=== PATIENT | female | born 1955 | race African-American/Black ===

== ENCOUNTER 2017-08-28 19:53 | Emergency (ER) | payer OTHER ==
[2017-08-28 20:05] VITALS: BP 172/86; PULSE 88; TEMP 100; BMI 36.4
--- NOTE | 2017-08-28 20:09 | PDOC ---
History of Present Illness - General Chief Complaint: Cold Symptoms Stated Complaint: PAIN/ HEADACHE Time Seen by Provider: 08/28/17 20:08 History Source: Patient Exam Limitations: No Limitations - History of Present Illness Initial Comments: 08/28/17 23:26 62-year-old female with history of diabetes presents to the emergency department complaining of bitemporal headache and "behind my eyes" with noise and light sensitivity 3 days. Patient was also complaining of chills and nausea but denies fever, vomiting, dizziness, lightheadedness, visual disturbance, stiff neck, confusion, difficulty concentrating, difficulty waking , sleepiness, seizures, anorexia, skin rash. Patient states she was coughing for the past hour which was unproductive. She denies rhinorrhea, nasal congestion, facial pains. Patient states the headache is alleviated with Motrin and rest. 08/28/17 23:33 Timing/Duration: reports: other (x3d) Past History - Past Medical History Allergies/Adverse Reactions: Allergies Allergy/AdvReac Type Severity Reaction Status Date / Time No Known Allergies Allergy Verified 08/28/17 19:59 Home Medications: Ambulatory Orders Dulaglutide [Trulicity] 08/28/17 Insulin (Levemir) [Levemir Flexpen -] 28 units SQ DAILY 08/28/17 Acetaminophen W/ Codeine #3 [Tylenol # 3 -] 1 tab PO Q6H #15 tablet MDD 4 Anemia: Yes COPD: No Diabetes: Yes Hypercholesterolemia: Yes - Immunization History Td Vaccination: Yes Immunization Up to Date: Yes - Suicide/Smoking/Psychosocial Hx Smoking Status: Yes Smoking History: Current every day smoker Number of Cigarettes Smoked Daily: 6 Information on smoking cessation initiated: Yes 'Breaking Loose' booklet given: 08/28/17 Hx Alcohol Use: No Drug/Substance Use Hx: No Review of Systems - Review of Systems Able to Perform ROS?: Yes Comments:: 08/28/17 20:27 CONSTITUTIONAL: +chills Absent: fever, diaphoresis, generalized weakness, malaise, loss of appetite HEENT: Absent: rhinorrhea, nasal congestion, throat pain, throat swelling, difficulty swallowing, mouth swelling, ear pain, eye pain, visual Changes CARDIOVASCULAR: Absent: chest pain, loss of consciousness, palpitations, irregular heart rate, peripheral edema RESPIRATORY: +cough x1 hr Absent: shortness of breath, dyspnea with exertion, orthopnea, wheezing, stridor, hemoptysis GASTROINTESTINAL: Absent: abdominal pain, abdominal distension, nausea, vomiting, diarrhea, constipation, melena, hematochezia GENITOURINARY: Absent: dysuria, frequency, urgency, hesitancy, hematuria, flank pain, genital pain MUSCULOSKELETAL: Absent: myalgia, arthralgia, joint swelling SKIN: Absent: rash, itching, pallor HEMATOLOGIC/IMMUNOLOGIC: Absent: easy bleeding, easy bruising, lymphadenopathy, frequent infections ENDOCRINE: Absent: unexplained weight gain, unexplained weight loss, heat intolerance, cold intolerance NEUROLOGIC: Absent: headache, focal weakness or paresthesias, dizziness, unsteady gait, seizure, mental status changes, bladder or bowel incontinence PSYCHIATRIC: Absent: anxiety, depression, suicidal or homicidal ideation, hallucinations. Is the patient limited [place] proficient: No *Physical Exam - Vital Signs Last Vital Signs Temp Pulse Resp BP Pulse Ox 100.0 F H 88 22 172/86 98 08/28/17 20:00 08/28/17 20:00 08/28/17 20:00 08/28/17 20:00 08/28/17 20:00 - Physical Exam Comments: 08/28/17 20:28 GENERAL: Well developed, well nourished. Awake and alert. No acute distress. HEENT: Normocephalic, atraumatic. PERRLA, EOMI. No conjunctival pallor. Sclera are non- icteric. Moist mucous membranes. Oropharynx is clear. NECK: Supple. Full ROM. No JVD. Carotid pulses 2+ and symmetric, without bruits. No thyromegaly. No lymphadenopathy. CARDIOVASCULAR: Regular rate and rhythm. No murmurs, rubs, or gallops. Distal pulses are 2+ and symmetric. PULMONARY: No evidence of respiratory distress. Lungs clear to auscultation bilaterally. No wheezing, rales or rhonchi. ABDOMINAL: Soft. Non-tender. Non-distended. No rebound or guarding. No organomegaly. Normoactive bowel sounds. MUSCULOSKELETAL Normal range of motion at all joints. No bony deformities or tenderness. No CVA tenderness. EXTREMITIES: No cyanosis. No clubbing. No edema. No calf tenderness. SKIN: Warm and dry. Normal capillary refill. No rashes. No jaundice. NEUROLOGICAL: Alert, awake, appropriate. Cranial nerves 2-12 intact. No deficits to light touch and temperature in face, upper extremities and lower extremities. No motor deficits in the in face, upper extremities and lower extremities. Normoreflexic in the upper and lower extremities. Normal speech. Toes are down- going bilaterally. Gait is normal without ataxia. PSYCHIATRIC: Cooperative. Good eye contact. Appropriate mood and affect. ED Treatment Course - LABORATORY CBC & Chemistry Diagram: 08/28/17 22:17 08/28/17 22:17 - RADIOLOGY Radiograph Interpretation: 08/28/17 23:45 CXR 2v NAD *DC/Admit/Observation/Transfer Diagnosis at time of Disposition: Headache Qualifiers: Headache type: tension-type Headache chronicity pattern: unspecified pattern Intractability: not intractable Qualified Code(s): G44.209 - Tension-type headache, unspecified, not intractable - Discharge Dispostion Disposition: HOME Condition at time of disposition: Stable Admit: No - Referrals Referrals: STAFF,NOT ON [Primary Care Provider] - Patrick Grullon MD [Staff Physician] - - Patient Instructions Printed Discharge Instructions: DI for Headache Additional Instructions: Rest Increase fluids Tylenol or motrin as needed for fever/pain Return to the ER for severe/persistent/worsening symptoms Follow up with your physician and the neurologist listed on your discharge/Dr. Grullon on Wednesday - Post Discharge Activity
--- NOTE | 2017-08-28 20:27 | PDOC ---
*Physical Exam - Vital Signs Last Vital Signs Temp Pulse Resp BP Pulse Ox 100.0 F H 88 22 172/86 98 08/28/17 20:00 08/28/17 20:00 08/28/17 20:00 08/28/17 20:00 08/28/17 20:00 Medical Decision Making - Medical Decision Making 08/28/17 20:26 Pt seen by the Advanced Practice Provider under my direct supervision Ancillary studies reviewed I agree with plan as outlined by the Advanced Practice Provider JAMES Do
[2017-08-28] MEDS ORDERED: ONDANSETRON 4 MG/2 ML VIAL IVPB ONE (20:28)
[2017-08-28] MEDS ORDERED: SODIUM CHLORIDE 1,000 ML IV STA (20:28)
[2017-08-28] MEDS ORDERED: METOCLOPRAMIDE HCL INJECTION 10 MG/2 ML VIAL IVPUSH ONE (20:34)
[2017-08-28 22:23] LABS: BASOPHIL 0.5 % (0-2.0); EOSINOPHIL 0.5 % (0-4.5); MCH 30.2 pg (25.7-33.7); MCHC 34.6 g/dl (32.0-36.0); MEAN CELL VOLUME 87.4 fl (80-96); MEAN PLT VOLUME 8.1 fl (7.5-11.1); PLATELET COUNT 231 K/MM3 (134-434); RDW 12.9 % (11.6-15.6); WHITE BLOOD COUNT 9.3 K/mm3 (4.0-10.0)
[2017-08-28 22:49] LABS: ALBUMIN 3.3 g/dl (3.4-5.0); ANION GAP 8 (8-16); CALCIUM 7.3 mg/dL (8.5-10.1); CO2 23 mmol/L (21-32); CREATININE 0.6 mg/dL (0.55-1.02); GLUCOSE,RANDOM 194 mg/dL (74-106); SGOT/AST 16 U/L (15-37); SGPT/ALT 27 U/L (12-78); TOT PROT 6.4 g/dl (6.4-8.2)
[2017-08-28 22:52] LABS: ALK PHOS 71 U/L (45-117); BILIRUBIN,TOTAL 0.3 mg/dL (0.2-1.0)
== END 2017-08-28 23:45 | disposition home or self-care (01) ==
LOC: JER 19:53
PROC: 3E0337Z Introduction of Electrolytic and Water Balance Substance into Peripheral Vein, Percutaneous Approach (ICD-10-PCS; principal; 2017-08-28)
PROC: 3E033GC Introduction of Other Therapeutic Substance into Peripheral Vein, Percutaneous Approach (ICD-10-PCS; 2017-08-28)
DX: G44.209 Tension-type headache, unspecified, not intractable (principal); E78.00 Pure hypercholesterolemia, unspecified; E11.9 Type 2 diabetes mellitus without complications; Z79.4 Long term (current) use of insulin
CPT/HCPCS: 36415; 71020-TC; 80053; 85025; 87804; 99281-25

== ENCOUNTER 2019-12-24 22:30 | Emergency (ER) | payer BC, OTHER ==
[2019-12-24] MEDS ORDERED: KETOROLAC TROMETHAMINE 60 MG/2 ML VIAL IM ONE (22:39)
--- NOTE | 2019-12-24 22:40 | PDOC ---
History of Present Illness - General Chief Complaint: Pain Stated Complaint: LEFT GROIN PAIN, LEFT LEG NUMBNESS Time Seen by Provider: 12/24/19 22:39 History Source: Patient Exam Limitations: No Limitations - History of Present Illness Initial Comments: 12/25/19 06:11 64y F with L buttock pain shooting down L leg has had this x 1 month s/p steroid course, which she self d/c'd no relief with diclofenac denies motor weakness, + numbness no bladder/ bowel incontinence Timing/Duration: getting worse, changing over time Severity: severe Modifying Factors: improves with: immobilization Associated Symptoms: denies: fever/chills Past History - Past Medical History Allergies/Adverse Reactions: Allergies Allergy/AdvReac Type Severity Reaction Status Date / Time No Known Allergies Allergy Verified 12/24/19 22:31 Home Medications: Ambulatory Orders Insulin (Levemir) [Levemir Flexpen -] 28 units SQ DAILY 08/28/17 Dapagliflozin Propanediol [Farxiga] 10 mg PO DAILY 12/24/19 Dulaglutide [Trulicity] 1.5 mg SQ DAILY 12/24/19 Oxycodone HCl/Acetaminophen [Percocet 5-325 mg Tablet] 2 tab PO Q6H PRN #20 tablet MDD 8 tabs 12/24/19 Anemia: Yes COPD: No Diabetes: Yes Hypercholesterolemia: Yes - Immunization History Td Vaccination: Yes Immunization Up to Date: Yes - Psycho Social/Smoking Cessation Hx Smoking Status: Yes Smoking History: Current every day smoker Number of Cigarettes Smoked Daily: 6 'Breaking Loose' booklet given: 08/28/17 Hx Alcohol Use: No Drug/Substance Use Hx: No Review of Systems - Review of Systems All Other Systems: Reviewed and Negative *Physical Exam - Physical Exam General Appearance: Yes: Appropriately Dressed HEENT: positive: Normal Voice Neck: negative: Lymphadenopathy (R), Lymphadenopathy (L) Respiratory/Chest: positive: Lungs Clear Cardiovascular: positive: Regular Rate Gastrointestinal/Abdominal: positive: Other (nontender over bladder). negative: Tender, Distended Lymphatic: negative: Adenopathy Musculoskeletal: positive: Normal Inspection Extremity: positive: Normal Capillary Refill Integumentary: positive: Normal Color Neurologic: positive: Other (no motor weakness in b/l LEs). negative: Sensory Deficit Medical Decision Making - Medical Decision Making 03/09/20 06:15 subacute sicatica analgesia encouraged stretching Discharge - Discharge Information Problems reviewed: Yes Clinical Impression/Diagnosis: Sciatica Qualifiers: Laterality: left Qualified Code(s): M54.32 - Sciatica, left side Condition: Good - Admission No - Additional Discharge Information Prescriptions: Oxycodone HCl/Acetaminophen [Percocet 5-325 mg Tablet] 2 tab PO Q6H PRN #20 tablet MDD 8 tabs PRN Reason: Pain - Follow up/Referral - Patient Discharge Instructions - Post Discharge Activity
[2019-12-24 22:50] VITALS: BP 146/77; PULSE 93; TEMP 98.8; BMI 38.2
[2019-12-24] MEDS ORDERED: KETOROLAC TROMETHAMINE 60 MG/2 ML VIAL ONE (22:51)
== END 2019-12-24 23:51 | disposition home or self-care (01) ==
LOC: FER 22:30
PROC: 3E0233Z Introduction of Anti-inflammatory into Muscle, Percutaneous Approach (ICD-10-PCS; principal; 2019-12-24)
DX: M54.32 Sciatica, left side (principal); F17.210 Nicotine dependence, cigarettes, uncomplicated; E78.00 Pure hypercholesterolemia, unspecified
CPT/HCPCS: 99284-25